=== PATIENT | male | born 1985 ===

== ENCOUNTER 2018-06-19 18:22 | Emergency (ER) | payer OTHER ==
[2018-06-19 18:32] VITALS: BP 130/83; PULSE 71; RESP 17; TEMP 97.4; O2SAT 98
[2018-06-19] MEDS ORDERED: Tdap Vaccine 0.5 ml Vial (10-64 yrs) IM ONE ×2 (18:51→19:01)
[2018-06-19] MEDS ORDERED: Lidocaine 1% Inj (20ml) INFIL ONE (18:51)
[2018-06-19] MEDS ORDERED: Lidocaine Hydrochloride 10 ML INJ ONE (19:00)
--- NOTE | 2018-06-19 19:14 | C.PDOC ---
History Of Present Illness 32 y/o male presents to the ED complaining of laceration on the right index finger he received after accidentally closing the car door on it earlier this afternoon. He denies any weakness, numbness or tingling. The patient does not recall his last tetanus shot. He offers no other medical complaints at this time. Time Seen by Provider: 06/19/18 18:39 Chief Complaint (Nursing): Abnormal Skin Integrity History Per: Patient History/Exam Limitations: no limitations Onset/Duration Of Symptoms: Hrs Current Symptoms Are (Timing): Still Present Location Of Injury: Right: Hand (right index finger) Recent travel outside of the [place]: No Past Medical History Reviewed: Historical Data, Nursing Documentation, Vital Signs Vital Signs: Last Vital Signs Temp 97.4 F L 06/19/18 18:29 Pulse 71 06/19/18 18:29 Resp 17 06/19/18 18:29 BP 130/83 06/19/18 18:29 Pulse Ox 98 06/24/18 18:56 Other Surgeries: Left ear surgery Family History: States: Unknown Family Hx - Social History Hx Alcohol Use: Yes Hx Substance Use: No - Immunization History Hx Tetanus Toxoid Vaccination: (unk) Hx Influenza Vaccination: No Hx Pneumococcal Vaccination: No Review Of Systems Constitutional: Negative for: Fever Skin: Positive for: Lesions (to right index finger) Neurological: Negative for: Weakness, Numbness, Other (tingling) Physical Exam - Physical Exam Appears: Non-toxic, No Acute Distress Skin: No Rash, Other (laceration) Head: Atraumatic, Normacephalic Eye(s): bilateral: PERRL, EOMI Extremity: Normal ROM Extremity: Right: Other (1.5 cm laceration to the distal phalanx (second digit) palmar surface) Pulses: Right Radial: Normal Neurological/Psych: Normal Motor, Normal Sensation, Other (Alert. No focal deficit) ED Course And Treatment O2 Sat by Pulse Oximetry: 98 (RA) Pulse Ox Interpretation: Normal Laceration - Laceration Repair Left Index Finger Wound Length (In cm): 1.5 Description Of Wound: Linear Anesthesia: Lidocaine 1% Wound Closure: Suture (: 4 5.0 sutures) Suture Technique And Material Used: Nylon Wound Complexity: Simple Medical Decision Making Medical Decision Making: Impression: 32 y/o male who closed car door on right finger Plan: --Motrin 600 mg --Right Hand X-Ray --Tetanus --Lidocaine 1% Disposition Counseled Patient/Family Regarding: Studies Performed, Diagnosis, Need For Followup, Rx Given - Disposition Referrals: [facility] at [facility] [Outside] Disposition: HOME/ ROUTINE Disposition Time: 19:57 Condition: GOOD Additional Instructions: Keep finger and dry. Change dressing daily; wash with soap and water. Dry gently. Apply antibiotic ointment. Watch for any signs of infection, such as redness, swelling, discharge. Complete antibiotics. Tylenol or Motrin for pain. Suture removal in 10 days. Prescriptions: Cephalexin [cephalexin] 500 mg PO QID #28 cap Instructions: Laceration Repair With Stitches (DC) Forms: [employer] (Greek), General Discharge Instructions - Clinical Impression Clinical Impression: Laceration of index finger - PA / [employer] / Resident Statement MD/DO has reviewed & agrees with the documentation as recorded. - Scribe Statement The provider has reviewed the documentation as recorded by the Scribe All medical record entries made by the Scribe were at my direction and personally dictated by me. I have reviewed the chart and agree that the record accurately reflects my personal performance of the history, physical exam, medical decision making, and the department course for this patient. I have also personally directed, reviewed, and agree with the discharge instructions and disposition.
[2018-06-19] MEDS ORDERED: Bacitracin 500 Units/gm Oint Foilpak UD ONE (19:49)
--- NOTE | 2018-06-20 15:13 | RAD ---
Date of service: 06/19/2018 PROCEDURE: Right Index finger radiographs. HISTORY: SLAMMED FINGER IN DOOR COMPARISON: None. TECHNIQUE: AP radiograph of the right hand, as well as spot oblique and lateral images of index finger were obtained. FINDINGS: RIGHT INDEX FINGER: Normal right index finger, without fracture or focal lesion. Remainder of the right hand (as seen on the AP view) grossly intact. JOINTS: Normal. SOFT TISSUES: Normal. OTHER FINDINGS: None. IMPRESSION: No evidence of acute displaced fracture nor dislocation. . If symptoms persist or occult fracture suspected clinically recommend repeat radiographs 7-10 days as most fractures should become radiographically evident in this timeframe.
== END 2018-06-19 20:05 | disposition home or self-care (01) ==
LOC: C.ER 18:22
DX: S61.210A Laceration without foreign body of right index finger without damage to nail, initial encounter (principal); W23.0XXA Caught, crushed, jammed, or pinched between moving objects, initial encounter